=== PATIENT | female | born 1995 | race African-American/Black ===

== ENCOUNTER 2017-12-22 21:57 | Emergency (ER) | payer OTHER ==
[~2017-12-22] VITALS: Ht 167.6 cm; Wt 94.3 kg
[~2017-12-22 21:57] MED LIST: KEFLEX500 MG PO; MEDROL DOSEPAK4 MG PO; NAPROSYN500 MG PO; VALIUM2 MG PO; ZOFRAN ODT4 MG PO
[2017-12-22 22:22] LABS: HEMATOCRIT 39.8 % (36.0-46.0); HEMOGLOBIN 13.2 G/DL (11.9-15.5); MCH 28.9 PG (29.0-34.0); MCHC 33.2 G/DL (30.0-36.0); MCV 87.3 FL (83-99); PLATELET COUNT 276 K/uL (156-360); RBC DIS.WIDTH-CV 12.1 % (11.8-14.6); RED BLOOD COUNT 4.56 M/uL (3.80-5.20); WHITE BLOOD COUNT 10.1 K/uL (4.1-10.2)
[2017-12-22 22:36] LABS: ALBUMIN 4.2 g/dL (3.2-4.8)
[2017-12-22 22:37] LABS: CHLORIDE 106 mEq/L (99-109); POTASSIUM 4.3 mEq/L (3.7-5.4); SODIUM 141 mEq/L (136-147)
[2017-12-22 22:39] LABS: GLUCOSE 107 mg/dL (70-99); TOTAL PROTEIN 7.7 g/dL (6.4-8.3)
[2017-12-22 22:41] LABS: TOTAL BILIRUBIN 0.4 mg/dL (0.0-1.0)
[2017-12-22 22:42] LABS: ALKALINE PHOSPHATASE 63 IU/L (3-129)
[2017-12-22 22:43] LABS: CREATININE 0.8 mg/dL (0.6-1.3); GFR ESTIMATE (CALCULATED) > 59 mL/min/
[2017-12-22 22:44] LABS: AST (GOT) 20 IU/L (2-34); UREA NITROGEN (BUN) 14 mg/dL (9-23)
[2017-12-22 22:46] LABS: ALT (GPT) 19 IU/L (3-49); LIPASE 19 U/L (1.0-51.0)
[2017-12-22 22:54] LABS: QUANTITATIVE HCG < 4.0 MIU/ML
[2017-12-22 23:29] LABS: APPEARANCE CLEAR ((CLEAR)); BILIRUBIN NEGATIVE; BLOOD MODERATE; COLOR YELLOW ((YELLOW)); GLUCOSE (STRIP) NEGATIVE; KETONES NEGATIVE; LEUKOCYTES NEGATIVE; NITRITE NEGATIVE; PROTEIN (STRIP) 30; SPECIFIC GRAVITY 1.024 (1.000-1.030); UROBILINOGEN 0.2 MG/DL (0.2-1.0)
[2017-12-23 00:01] LABS: BACTERIA NONE SEEN /HPF; CALCIUM OXALATE CRYSTALS 1+ /HPF; EPITHELIAL CELLS RARE /HPF; MUCUS TRACE /LPF; RED BLOOD CELLS 0-5 /HPF (0-5); UCUL ADDED? NO; WHITE BLOOD CELLS 0-5 /HPF (0-5)
[2017-12-23 01:09] VITALS: BP 132/94
[2017-12-23] MEDS ORDERED: CARAFATE1 GM PO (01:15)
[2017-12-23] MEDS ORDERED: OMEPRAZOLE40 M1 PO (01:15)
== END 2017-12-23 01:26 | disposition home or self-care (01) ==
LOC: EME 21:57
DX: R10.31 Right lower quadrant pain (principal); K56.7 Ileus, unspecified; Z90.49 Acquired absence of other specified parts of digestive tract
CPT/HCPCS: 71046; 74018; 80053; 81003; 83690; 84702; 85027; 99281; 99284